=== PATIENT | female | born 1995 ===

== ENCOUNTER → 2018-09-19 | Outpatient (REF) | payer OTHER ==
[2018-09-19 23:50] LABS: CHLAMYDIA DNA AMPLIFICATION POSITIVE (NEGATIVE); GC DNA AMPLIFICATION NEGATIVE (NEGATIVE)
== END ==
LOC: M LAB REF 21:51
DX: Z20.2 Contact with and (suspected) exposure to infections with a predominantly sexual mode of transmission (principal)
CPT/HCPCS: 87591